=== PATIENT | male | born 1980 | race Caucasian/White ===

== ENCOUNTER 2020-04-22 13:31 | Emergency (ER) | payer BC ==
[~2020-04-22] VITALS: Ht 195.6 cm; Wt 102.3 kg
[2020-04-22 13:39] VITALS: TEMP 99.2
[2020-04-22] MEDS ORDERED: LEXAPRO 10MG10 MG PO (14:03)
[2020-04-22 16:45] VITALS: BP 134/99; PULSE 80
== END 2020-04-22 16:55 | disposition home or self-care (01) ==
LOC: COL.ER 13:31
DX: S96.921A Laceration of unspecified muscle and tendon at ankle and foot level, right foot, initial encounter (principal); F32.9 Major depressive disorder, single episode, unspecified; W25.XXXA Contact with sharp glass, initial encounter; Y92.009 Unspecified place in unspecified non-institutional (private) residence as the place of occurrence of the external cause
CPT/HCPCS: Q4045